=== PATIENT | female | born 1965 | race Caucasian/White ===

== ENCOUNTER 2019-11-10 08:01 | Outpatient (CLI) | payer OTHER, SELFPAY ==
--- NOTE | ~2019-11-10 | MM_ITS ---
EXAMINATION: MM screening [facility] BI w alexander HISTORY: Screening mammogram TECHNIQUE: Craniocaudal and mediolateral oblique 3-D tomosynthesis images were obtained and synthetic 2-D images were generated. CAD analysis was submitted and interpreted. COMPARISON: 06/22/2018, 05/15/2017 bilateral digital screening mammogram examinations BREAST PARENCHYMAL COMPOSITION: There are scattered areas of fibroglandular density. FINDINGS: There is no evidence of suspicious mass, calcification, or architectural distortion to sugg est malignancy in either breast. There has been no suspicious interval change. IMPRESSION: 1. No mammographic evidence of malignancy. 2. Recommend routine screening mammography in one year. BI-RADS Category 1: Negative Reviewed, dictated and finalized at location A.
== END 2019-11-10 08:02 | disposition home or self-care (01) ==
LOC: ANHIMG 08:05
PROVIDERS: PCP Physician Assistant; Visit Provider Obstetrics & Gynecology
DX: Z12.31 Encounter for screening mammogram for malignant neoplasm of breast (principal)
CPT/HCPCS: 77063; 77067

== ENCOUNTER 2021-02-20 15:44 | Outpatient (CLI) | payer OTHER, SELFPAY ==
--- NOTE | ~2021-02-20 | MM_ITS ---
EXAMINATION: MM screening [facility] BI w alexander HISTORY: Screening mammogram TECHNIQUE: Craniocaudal and mediolateral oblique 3-D tomosynthesis images were obtained and synthetic 2-D images were generated. CAD analysis was submitted and interpreted. COMPARISON: 11/10/2019, 06/22/2018, 05/15/2017 bilateral screening mammogram examinations BREAST PARENCHYMAL COMPOSITION: There are scattered areas of fibroglandular density. FINDINGS: There is no evidence of suspicious mass, calcification, or architectural distortion to sugg est malignancy in either breast. There has been no suspicious interval change. IMPRESSION: 1. No mammographic evidence of malignancy. 2. Recommend routine screening mammography in one year. BI-RADS Category 1: Negative Reviewed, dictated and finalized at location A. GNER/WRITER
== END 2021-02-20 15:45 | disposition home or self-care (01) ==
LOC: ANHIMG 15:47
PROVIDERS: PCP Physician Assistant; Visit Provider Obstetrics & Gynecology
DX: Z12.31 Encounter for screening mammogram for malignant neoplasm of breast (principal)
CPT/HCPCS: 77063; 77067

== ENCOUNTER → 2021-11-06 08:35 | Outpatient (CLI) | payer OTHER, SELFPAY ==
--- NOTE | ~2021-11-06 | XR_ITS ---
XR shoulder RT min 2V, XR humerus RT 11/06/2021 09:01 Indication: Right arm and shoulder pain Procedure: 4 views right shoulder and 2 views right humerus Comparison: No prior studies for comparison. Findings: No fracture, subluxation or dislocation. There is anatomic alignment of the right shoulder. No significant degenerative joint disease. No focal soft tissue abnormality. No foreign bodies. Impression: 1: No significant bone or joint abnormality. Reviewed, dictated and finalized at location B. Impression: 1: No significant bone or joint abnormality. Impression: 1: No significant bone or joint abnormality.
== END ==
PROVIDERS: PCP Physician Assistant; Visit Provider Physician Assistant
DX: M79.601 Pain in right arm (principal)
CPT/HCPCS: 73030; 73060

== ENCOUNTER 2022-03-21 08:33 | Outpatient (CLI) | payer OTHER, SELFPAY ==
--- NOTE | ~2022-03-21 | MM_ITS ---
EXAMINATION: MM screening [facility] BI w alexander HISTORY: Screening mammogram TECHNIQUE: Craniocaudal and mediolateral oblique 3-D tomosynthesis images were obtained and synthetic 2-D images were generated. CAD analysis was submitted and interpreted. COMPARISON: 02/20/2021, 11/10/2019, 06/22/2018 bilateral screening mammogram examinations BREAST PARENCHYMAL COMPOSITION: There are scattered areas of fibroglandular density. FINDINGS: There is no evidence of suspicious mass, calcification, or architectural distortion to sugg est malignancy in either breast. There has been no suspicious interval change. IMPRESSION: 1. No mammographic evidence of malignancy. 2. Recommend routine screening mammography in one year. BI-RADS Category 1: Negative Reviewed, dictated and finalized at location A. VE DIRECTORY ADMINISTRATOR
== END 2022-03-21 08:34 | disposition home or self-care (01) ==
LOC: ANHIMG 08:34
PROVIDERS: PCP Physician Assistant; Visit Provider Obstetrics & Gynecology
DX: Z12.31 Encounter for screening mammogram for malignant neoplasm of breast (principal)
CPT/HCPCS: 77063; 77067

== ENCOUNTER 2023-02-10 07:49 | Outpatient (CLI) | payer OTHER, SELFPAY | END 2023-02-10 07:50 | disposition home or self-care (01) | LOC: ANHAUDIO 07:50 | PROVIDERS: PCP Physician Assistant; Visit Provider Physician Assistant | DX: H91.90 Unspecified hearing loss, unspecified ear (principal) | CPT/HCPCS: 92552; 92556; 92567 ==

== ENCOUNTER 2023-08-18 16:07 | Outpatient (CLI) | payer OTHER, SELFPAY ==
--- NOTE | ~2023-08-18 | MM_ITS ---
EXAMINATION: MM screening [facility] w alexander HISTORY: Screening TECHNIQUE: Craniocaudal and mediolateral oblique 3-D tomosynthesis images were obtained and synthetic 2-D images were generated. CAD analysis was submitted and interpreted. COMPARISON: Comparison to multiple prior studies sequentially, with oldest reviewed study dated 05/15. BREAST PARENCHYMAL COMPOSITION: The breasts are almost entirely fatty. FINDINGS: There is no evidence of suspicious mass, calcification, or architectural distortion to sugg est malignancy in either breast. There has been no suspicious interval change. IMPRESSION: 1. No mammographic evidence of malignancy. 2. Recommend routine screening mammography in one year. BI-RADS Category 1: Negative Reviewed, dictated and finalized at location B.
== END 2023-08-18 16:08 | disposition home or self-care (01) ==
PROVIDERS: PCP Physician Assistant; Visit Provider Obstetrics & Gynecology
DX: Z12.31 Encounter for screening mammogram for malignant neoplasm of breast (principal)
CPT/HCPCS: 77063; 77067

== ENCOUNTER 2024-04-13 09:13 | Outpatient (CLI) | payer BC, SELFPAY ==
--- NOTE | ~2024-04-13 | US_ITS ---
EXAMINATION: US right upper quadrant DATE: 04/13/2024 10:05 INDICATION: Abnormal liver function tests. TECHNIQUE: Multiple grayscale and Doppler ultrasound images of the abdomen were obtained. COMPARISON: None FINDINGS: The visualized portions of the head and body of the pancreas are normal. The liver is jerry l without focal lesion. There is normal flow in main portal vein. The gallbladder is normal in size a nd contains gallstones. No gallbladder wall thickening or sonographic Aguilar sign. The common duct is normal and measures 3 mm. IMPRESSION: 1. Cholelithiasis. No evidence of acute cholecystitis. Reviewed, dictated and finalized at location B. E CUTTER
--- OUTSIDE RECORDS SUMMARY | 2024-04-14 22:20 | XMS_ITS | Data Portability ---
Author Organization [facility] Mar[place] Lares Address [address] [place] [id number] Care Team Providers Care Med Surg Nurse Name Role Phone MIQUEL CHOW Primary Care Provider Unavailab le Assessment Encounter Date Assessment Date Assessment LastModified by Organization Details LastModified Time 02/01/2024 02/01/2024 mammogram UTD Deonte 2023 pap smear soon feb.23. [facility] U[facility] colonoscopy 2016, 10 year was given. Not available 02/01/2024 12:30:35 Plan of Treatment Reminders Order Date Submit Date Provider Last Modified By Organization Details Last Modified Time Details Appointments None recorded . Lab TSH + free T4, serum 024 02/01/20 ROD Reed, 2022 [address], [address], [place], [address], 4 11:15:59 lipid panel, serum 024 02/01/20 ROD Reed, 2022 Jordan Ramirez, [address], [place], [address], 4 11:15:58 CMP, serum or plasma 024 02/01/20 ROD Reed, 2022 Jordan Ramirez, [address], [place], [address], 4 11:16:01 CBC w/ auto diff 024 02/01/20 ROD Reed, 2022 Jordan Ramirez, [address], [place], [address], 4 11:16:05 insulin, serum 024 02/01/20 ROD [facility], 2022 Jordan Ramirez, [address], [place], [address], 4 11:16:04 HbA1c (hemoglo bin A1c), blood 024 02/01/20 ELIZABETH [facility], [address], [address], [place], [address], 4 11:16:02 Referral None recorded . Procedures None recorded . Surgeries None recorded . Imaging None recorded . Medication Orders None recorded . Patient TargetsNo targets recorded. Patient Instructions Encounter Date Encounter Id Patient Instructions Last Modified By Organization Details Last Modified Time 02/01/2024 [id number] A healthy lifestyle: care instructions Not available 02/01/2024 12:31:40 Reason for Referral None Reported. Results Created Date Observation Date Name Description Value Unit Range Abnormal Flag Note LastModifiedBy Organization Detail LastModifiedTime 02/04/20 24 02/05/2024 LIPID PANEL W/ CHOL/ HDL RATIO cholesterol, total 161 mg/dL 100-19 9 Not Available [facility] ([facility]) [address] [facility], [place], [address], 02/05/2024 11:15:58 02/04/20 24 02/05/2024 LIPID PANEL W/ CHOL/ HDL RATIO triglyceride s 101 mg/dL 0-149 Not Available [facility] ([facility]) [address] [facility], [place], [address], 02/05/2024 11:15:58 02/04/20 24 02/05/2024 LIPID PANEL W/ CHOL/ HDL RATIO HDL cholesterol 58 mg/dL >39 Not Available [facility] ([facility]) [address] [facility], [place], [address], 02/05/2024 11:15:58 02/04/20 24 02/05/2024 LIPID PANEL W/ CHOL/ HDL RATIO VLDL cholesterol xavi 18 mg/dL 5-40 Not Available [facility] ([facility]) [address] [place], [address], 02/05/2024 11:15:58 02/04/20 24 02/05/2024 LIPID PANEL W/ CHOL/ HDL RATIO LDL chol calc ([facility]) 85 mg/dL 0-99 Not Available [facility] ([facility]) [address] [place], [address], 02/05/2024 11:15:58 02/04/20 24 02/05/2024 LIPID PANEL W/ CHOL/ HDL RATIO T. chol/HDL ratio 2.8 ratio 0.0-4. 4 T. Chol/ HDL Ratio Men Women 1/2 Avg.R isk 3.4 3.3 Avg.R isk 5.0 4.4 2X Avg.R isk 9.6 7.1 3X Avg.R isk 23.4 11.0 Not Available [facility] ([facility]) [address] [place], [address], 02/05/2024 11:15:58 02/04/20 24 02/05/2024 TSH+F REE T4 TSH 2.190 uIU/m L 0.450- 4.500 Not Available [facility] ([facility]) [address] [place], [address], 02/05/2024 11:15:59 02/04/20 24 02/05/2024 TSH+F REE T4 T4,free(dire ct) 1.13 NG/dL 0.82-1 .77 Not Available [facility] ([facility]) [address] [place], [address], 02/05/2024 11:15:59 02/04/20 24 02/05/2024 COMP. METAB OLIC PANEL (14) glucose 99 mg/dL 70-99 Not Available [facility] ([facility]) [address] [place], [address], 02/05/2024 11:16:01 02/04/20 24 02/05/2024 COMP. METAB OLIC PANEL (14) BUN 15 mg/dL 6-24 Not Available [facility] ([facility]) [address] [facility], [place], [address], 02/05/2024 11:16:01 02/04/20 24 02/05/2024 COMP. METAB OLIC PANEL (14) creatinine 0.65 mg/dL 0.57-1 .00 Not Available [facility] ([facility]) [address] [facility], [place], [address], 02/05/2024 11:16:01 02/04/20 24 02/05/2024 COMP. METAB OLIC PANEL (14) eGFR 101 mL/mi n/1.7 3 >59 Not Available [facility] ([facility]) [address] [facility], [place], [address], 02/05/2024 11:16:01 02/04/20 24 02/05/2024 COMP. METAB OLIC PANEL (14) BUN/creatini ne ratio 23 9-23 Not Available [facility] ([facility]) [address] [facility], [place], [address], 02/05/2024 11:16:01 02/04/20 24 02/05/2024 COMP. METAB OLIC PANEL (14) sodium 142 mmol/ L 134-14 4 Not Available [facility] ([facility]) [address] [facility], [place], [address], 02/05/2024 11:16:01 02/04/20 24 02/05/2024 COMP. METAB OLIC PANEL (14) potassium 4.2 mmol/ L 3.5-5. 2 Not Available [facility] ([facility]) [address] [place], [address], 02/05/2024 11:16:01 02/04/20 24 02/05/2024 COMP. METAB OLIC PANEL (14) chloride 105 mmol/ L 96-106 Not Available [facility] ([facility]) [address] [facility] [place], [address], 02/05/2024 11:16:01 02/04/20 24 02/05/2024 COMP. METAB OLIC PANEL (14) carbon dioxide, total 25 mmol/ L 20-29 Not Available [facility] ([facility]) [address] [facility] [place], [address], 02/05/2024 11:16:01 02/04/20 24 02/05/2024 COMP. METAB OLIC PANEL (14) calcium 8.7 mg/dL 8.7-10 .2 Not Available [facility] ([facility]) [address] [facility], [place], [address], 02/05/2024 11:16:01 02/04/20 24 02/05/2024 COMP. METAB OLIC PANEL (14) protein, total 6.3 g/dL 6.0-8. 5 Not Available [facility] ([facility]) [address] [facility] [place], [address], 02/05/2024 11:16:01 02/04/20 24 02/05/2024 COMP. METAB OLIC PANEL (14) albumin 4.0 g/dL 3.8-4. 9 Not Available [facility] ([facility]) [address] [facility] [place], [address], 02/05/2024 11:16:01 02/04/20 24 02/05/2024 COMP. METAB OLIC PANEL (14) globulin, total 2.3 g/dL 1.5-4. 5 Not Available [facility] ([facility]) [address] [facility] [place], [address], 02/05/2024 11:16:01 02/04/20 24 02/05/2024 COMP. METAB OLIC PANEL (14) bilirubin, total 0.3 mg/dL 0.0-1. 2 Not Available [facility] ([facility]) [address] [place], [address], 02/05/2024 11:16:01 02/04/20 24 02/05/2024 COMP. METAB OLIC PANEL (14) alkaline phosphatase 126 IU/L 44-121 above high normal Not Available [facility] ([facility]) [address] [place], [address], 02/05/2024 11:16:01 02/04/20 24 02/05/2024 COMP. METAB OLIC PANEL (14) AST (SGOT) 35 IU/L 0-40 Not Available [facility] ([facility]) [address] [place], [address], 02/05/2024 11:16:01 02/04/20 24 02/05/2024 COMP. METAB OLIC PANEL (14) ALT (SGPT) 47 IU/L 0-32 above high normal Not Available [facility] ([facility]) [address] [place], [address], 02/05/2024 11:16:01 02/04/20 24 02/05/2024 HEMOG LOBIN A1C hemoglobin A1C 5.7 % 4.8-5. 6 above high normal Predi abete s: 5.7 - 6.4 Diabe panchito: >6.4 Glyce celeste contr ol for adult s with diabe panchito: <7.0 Not Available [facility] ([facility]) [address] [place], [address], 02/05/2024 11:16:02 02/04/20 24 02/05/2024 INSUL IN insulin 18.1 uIU/m L 2.6-24 .9 Not Available [facility] ([facility]) [address] [place], [address], 02/05/2024 11:16:03 02/04/20 24 02/05/2024 CBC WITH DIFFE RENTI AL/PL ATELE T WBC 4.5 x10e3 /uL 3.4-10 .8 Not Available [facility] ([facility]) [address] [facility], [place], [address], 02/05/2024 11:16:05 02/04/20 24 02/05/2024 CBC WITH DIFFE RENTI AL/PL ATELE T RBC 4.55 x10e6 /uL 3.77-5 .28 Not Available [facility] ([facility]) [address] [facility], [place], [address], 02/05/2024 11:16:05 02/04/20 24 02/05/2024 CBC WITH DIFFE RENTI AL/PL ATELE T hemoglobin 14.0 g/dL 11.1-1 5.9 Not Available [facility] ([facility]) [address] [place], [address], 02/05/2024 11:16:05 02/04/20 24 02/05/2024 CBC WITH DIFFE RENTI AL/PL ATELE T hematocrit 41.5 % 34.0-4 6.6 Not Available [facility] ([facility]) [address] [place], [address], 02/05/2024 11:16:05 02/04/20 24 02/05/2024 CBC WITH DIFFE RENTI AL/PL ATELE T MCV 91 fL 79-97 Not Available [facility] ([facility]) [address] [place], [address], 02/05/2024 11:16:05 02/04/20 24 02/05/2024 CBC WITH DIFFE RENTI AL/PL ATELE T MCH 30.8 pg 26.6-3 3.0 Not Available [facility] ([facility]) [address] [place], [address], 02/05/2024 11:16:05 02/04/20 24 02/05/2024 CBC WITH DIFFE RENTI AL/PL ATELE T MCHC 33.7 g/dL 31.5-3 5.7 Not Available [facility] ([facility]) [address] [facility], [place], [address], 02/05/2024 11:16:05 02/04/20 24 02/05/2024 CBC WITH DIFFE RENTI AL/PL ATELE T RDW 12.1 % 11.7-1 5.4 Not Available [facility] ([facility]) [address] [facility], [place], [address], 02/05/2024 11:16:05 02/04/20 24 02/05/2024 CBC WITH DIFFE RENTI AL/PL ATELE T platelets 200 x10e3 /uL 150-45 0 Not Available [facility] ([facility]) [address] [facility], [place], [address], 02/05/2024 11:16:05 02/04/20 24 02/05/2024 CBC WITH DIFFE RENTI AL/PL ATELE T neutrophils 56 % notest ab. Not Available [facility] ([facility]) [address] [facility], [place], [address], 02/05/2024 11:16:05 02/04/20 24 02/05/2024 CBC WITH DIFFE RENTI AL/PL ATELE T lymphs 30 % notest ab. Not Available [facility] ([facility]) [address] [facility], [place], [address], 02/05/2024 11:16:05 02/04/20 24 02/05/2024 CBC WITH DIFFE RENTI AL/PL ATELE T monocytes 9 % notest ab. Not Available [facility] ([facility]) [address] [facility], [place], [address], 02/05/2024 11:16:05 02/04/20 24 02/05/2024 CBC WITH DIFFE RENTI AL/PL ATELE T eos 4 % notest ab. Not Available [facility] ([facility]) [address] [facility], [place], [address], 02/05/2024 11:16:05 02/04/20 24 02/05/2024 CBC WITH DIFFE RENTI AL/PL ATELE T basos 1 % notest ab. Not Available [facility] ([facility]) [address] [facility], [place], [address], 02/05/2024 11:16:05 02/04/20 24 02/05/2024 CBC WITH DIFFE RENTI AL/PL ATELE T neutrophils (absolute) 2.5 x10e3 /uL 1.4-7. 0 Not Available [facility] ([facility]) [address] [facility], [place], [address], 02/05/2024 11:16:05 02/04/20 24 02/05/2024 CBC WITH DIFFE RENTI AL/PL ATELE T lymphs (absolute) 1.4 x10e3 /uL 0.7-3. 1 Not Available [facility] ([facility]) [address] [facility], [place], [address], 02/05/2024 11:16:05 02/04/20 24 02/05/2024 CBC WITH DIFFE RENTI AL/PL ATELE T monocytes(ab solute) 0.4 x10e3 /uL 0.1-0. 9 Not Available [facility] ([facility]) [address] [facility], [place], [address], 02/05/2024 11:16:05 02/04/20 24 02/05/2024 CBC WITH DIFFE RENTI AL/PL ATELE T eos (absolute) 0.2 x10e3 /uL 0.0-0. 4 Not Available [facility] ([facility]) [address] [facility], [place], [address], 02/05/2024 11:16:05 02/04/20 24 02/05/2024 CBC WITH DIFFE RENTI AL/PL ATELE T baso (absolute) 0.1 x10e3 /uL 0.0-0. 2 Not Available [facility] ([facility]) [address] [facility], [place], [address], 02/05/2024 11:16:05 02/04/20 24 02/05/2024 CBC WITH DIFFE RENTI AL/PL ATELE T immature granulocytes 0 % notest ab. Not Available [facility] ([facility]) [address] [facility], [place], [address], 02/05/2024 11:16:05 02/04/20 24 02/05/2024 CBC WITH DIFFE RENTI AL/PL ATELE T immature grans (abs) 0.0 x10e3 /uL 0.0-0. 1 Not Available [facility] ([facility]) [address] [facility], [place], [address], 02/05/2024 11:16:05 04/13/19 25 04/13/2024 US, liver No observ ation record ed. [facility] [address], [place], [address], 04/14/2024 10:20:41 Result Notes None recorded. Problems Name Problem SNOMED Code Status Onset Date Resolution Date Notes Provider Name and Address Organization Details Recorded Time Body mass index 40+ - severely obese 844563009 Active 024 Sebastien Jaimes MA null, [place] - [facility] 4 12:08:11 Obesity 592417733 Active 024 NOLVIA Pleitez Attn: Accounting ,[address] [facility], [place], [address] , [facility] 4 10:28:16 Long-term drug therapy Active 024 NOLVIA Pleitez Attn: Accounting ,[address] [facility], [place], [address] , [facility] 4 10:28:30 Problem Notes None recorded. Procedures Surgical History Date Name Laterality Status Provider Name and Address Organization Details Recorded Time D & c after delivery completed Sebastien Jiames MA [facility] 02/01/2024 12:04:40 Imaging Results Imaging Date Name Status LastModified by Organiz ation Details LastModified Time 04/13/2024 US, liver completed [facility] [address], [place], [address], 04/14/2024 10:20:41 Procedure Notes None recorded. Medical Equipment None Reported. Allergies Allergen ID Allergen Name Allergen Category Reaction Reaction Severity Criticality Documentation Date Start Date Code Code System Note Provider Name and Address Organization Details Recorded Time [id number] 2824e latex environme nt,medica tion Not available Not available Not available 02/01/2024 93802 91 RxNorm redne ss Not Available Not Available Not Available Medications Name Sig Start Date Stop Date Status Note LastModified by Organization Details LastModified Time multivitamin active otc Not Available Not Available Not Available Vitals Date Recorded Body weight Provider Name an d Address Organization Details Last Updated DateTime 02/01/2024 239634.95 g Sebastien Jaimes MA [facility] 01/31 12:03:21 Date Recorded Body mass index (BMI) Body height Provider Name and Address Organization Details Last Updated DateTime 02/01/2024 43 kg/m2 160.02 cm Sebastien Jaimes MA [facility] 02/01/2024 12:04:29 Date Recorded Respiratory rate Provider Name a nd Address Organization Details Last Updated DateTime 02/01/2024 18 /min Sebastien Jaimes MA [facility] 02/01/2024 12:04:30 Date Recorded Oxygen saturation Oxygen saturation in Arterial blood by Pulse oximetry Provider Name and Address Organization Details Last Updated DateTime 02/01/2024 99 % 99 % Sebastien Jaimes MA [facility] 02/01/2024 12:06:33 Date Recorded Heart rate Provider Name an d Address Organization Details Last Updated DateTime 02/01/2024 86 /min Sebastien Jaimes MA [facility] 2023 12:06:34 Date Recorded Systolic blood pressure Diastolic blood pressure Provider Name and Address Organization Details Last Updated DateTime 02/01/2024 116 mm[Hg] 82 mm[Hg] Sebastien Jaimes MA [place] - [facility] 02/01/2024 12:07:55 Date Recorded Systolic blood pressure Diastolic blood pressure Provider Name and Address Organization Details Last Updated DateTime 02/01/2024 130 mm[Hg] 80 mm[Hg] NOLVIA Pleitez Attn: Accounting,[address] [facility], [place], [address], [place] - [facility] 02/01/2024 12:30:42 Social History Question Answer Notes LastModified by Organizat ion Details LastModified Time Tobacco Smoking Status Never Smoker Sebastien Jaimes MA null, [facility] 02/01/2024 12:06:02 Do You Have An Advance Directive? No Information not available 02/01/2024 What Is Your Level Of Alcohol Consumption? Occasional Information not available 02/01/2024 Are You Blind Or Do You Have Difficulty Seeing? No Contacts Information not available 02/01/2024 What Is Your Level Of Caffeine Consumption? Moderate Information not available 02/01/2024 In The 14 Days Before Symptom Onset, Have You Had Close Contact With A Laboratory-confir med COVID-19 While That Case Was Ill? No Information not available 02/01/2024 In The 14 Days Before Symptom Onset, Have You Had Close Contact With A Person Who Is Under Investigation For COVID-19 While That Person Was Ill? No Information not available 02/01/2024 Have You Been To An Area Known To Be High Risk For COVID-19? No Information not available 02/01/2024 Are You Currently Employed? Yes Information not available 02/01/2024 Are You Deaf Or Do You Have Serious Difficulty Hearing? No Information not available 02/01/2024 What Type Of Diet Are You Following? REGULAR Information not available 02/01/2024 Are There Any Guns Present In Your Home? No Information not available 02/01/2024 What Was The Date Of Your Most Recent Tobacco Screening? 02/01/2024 Information not available 02/01/2024 What Is Your Relationship Status? Information not available 02/01/2024 Do You Use Your Seat Belt Or Car Seat Routinely? Yes Information not available 02/01/2024 Do You Have Smoke And Carbon Monoxide Detectors In Your Home? Yes Information not available 02/01/2024 Do You Use Any Illicit Or Recreational Drugs? No Information not available 02/01/2024 Do You Use Sunscreen Routinely? Yes Information not available 02/01/2024 Has Tobacco Cessation Counseling Been Provided? No Information not available 02/01/2024 Do You Or Have You Ever Used Any Other Forms Of Tobacco Or Nicotine? No Information not available 02/01/2024 Sex: Female Functional Status Question Answer Note LastModified by Organization D etails LastModified Time Are you able to care for yourself? Yes Information n ot available 02/01/2024 Mental Status None recorded. Family History Relationship Description Onset Age of this Age Resolved Age Notes LastModified by Organization Details LastModified Time Father Dementia [email or web address] Not availabl e 02/01/2024 12:05:27 Mother Diabetes mellitus tcarterma Not available 2023 12:05:32 Mother Disorder of thyroid gland tcarterma Not available 2023 12:05:38 Mother Hypertensive disorder tcarterma Not available 2023 12:05:42 Medical History No medical history recorded. Gynecological HistoryNo gynecological history recorded. Obstetrics History GPAL:G 0 P 0 0 0 0 Immunizations Vaccine Type Date Status Note Provider Nam e and Address Organization Details Recorded Time Influenza, MDCK, quadrivalent, PF 01/22/2023 completed Sebastien Ja[place], [place] [facility] 02/01/2024 12:04:59 COVID-19, mRNA, LNP-S, PF, 100 mcg/0.5mL dose or 50 mcg/0.25mL dose 02/23/2021 noelle Ja[place], [place] [facility] 02/01/2024 12:04:59 COVID-19, mRNA, LNP-S, PF, 30 mcg/0.3 mL dose 06/04/2020 [place]elle Ja[place], [place] [facility] 02/01/2024 12:04:59 COVID-19, mRNA, LNP-S, PF, 30 mcg/0.3 mL dose 06/26/2020 completed VISHNU [place] [facility] 02/01/2024 12:04:59 COVID-19, mRNA, LNP-S, bivalent, PF, 30 mcg/0.3 mL dose 01/18/2022 completed VISHNU [place] [facility] 02/01/2024 12:04:59 COVID-19, mRNA, LNP-S, PF, 50 mcg/0.5 mL 01/22/2023 completed IVSHNU [place] [facility] 02/01/2024 12:04:59 COVID-19, mRNA, LNP-S, PF, 50 mcg/0.5 mL 01/31/2024 completed VISHNU [place] [facility] 02/01/2024 12:04:59 Influenza, split virus, quadrivalent, PF 12/22/2019 completed VISHNU [place] [facility] 02/01/2024 12:04:59 Influenza, split virus, quadrivalent, PF 12/24/2020 completed VISHNU [place] [facility] 02/01/2024 12:04:59 Influenza, split virus, quadrivalent, PF 01/18/2022 completed VISHNU [place] [facility] 02/01/2024 12:04:59 Past Encounters Encounter ID Performer Location Encounter Start Date Encounter Closed Date Diagnosis/Indication Diagnosis SNOMED-CT Code Diagnosis ICD10 Code Diagnosis Note [id number] NOLVIA Pleitez [facility] [address] [place] [id number] 02/01/2024 11:44:18 02/01/2024 15:02:09 Body mass index 40+ - severely obese 034274551 Z68.41 BMI is 43 we will order a fasting insulin level to assess for insulin resistance Obesity 247350339 E66.9 discussed healthy diet, exercise, controllin g carbohydra panchito and added sugars in the diet Adult heal th examination 081309683 Z00.00 wellness completed. Cholesterol screening 27 6244196 Z13.220 Fasting lipid panel ordered Diabetes m ellitus screening 013890284 Z13.1 Annual diabetes screening ordered Thyroid di sorder screening 659983987 Z13.29 Routine thyroid panel due Long-term drug therapy 957350759 Z79.891 Routine CBC and CMP ordered Health Concerns Section Related Observation LastModified by Organization Detai ls LastModified Time None Recorded Concern Status LastModified by Organization Details LastModified Time None Recorded Advance Directives Directive N: Payers Encounter Date Sequence Insurance Name Policy Number Policy Quintanilla Covered Member ID Quintanilla Member ID Guarantor Name 02/01/2024 1 [facility] [id number] Catherine Dorado [id number] Catherinecarlos Dorado Notes Date Note Type Note Provider Name and Address Organization Details Recorded Time 02/01/2024 text/html Patient is here to reestablish with provider at new office location have her annual wellness exam and routine labs ordered. She has no complaints. NOLVIA Pleitez Attn: Accounting,[address] [facility], [place], [address], [facility] 02/19/2024 10:28:54 OBGyn Episode No OBEpisode recorded.
--- OUTSIDE RECORDS SUMMARY | 2024-04-14 22:20 | XMS_ITS | Clinical Summary ---
Author Organization [facility] Address [address] [place] [address]. [place] [address] [place] [address] Care Team Providers Care Entry Level Sales Associate Name Role Phone Vonnie Pacheco Primary Care Provider Allergies No known active allergies Medications Multiple Vitamins-Mineral s (MULTIVITAMIN ADULT) Tab Take 1 tablet by mouth daily. Active calcium carbonate-vitami n D (CALCIUM 500+D) 500-200 MG-UNIT Tab tablet Take 1 tablet by mouth daily. Active naproxen 500 MG tablet Take 1 tablet (500 mg total) by mouth 2 (two) times daily as needed (Pain. Please take with meals.). 60 tablet 05/06/2019 Active Social History Tobacco Use Types Packs/Day Years Used Date Smoking Tobacco: Never Smokeless Tobacco: Never Comments Unknown Sex and Gender Information Value Date Recorded Sex Assigned at Not on file Legal Sex Female 8:32 PM TAXI DANCER Gender Identity Not on file Sexual Orientation Not on file Last Filed Vital Signs Vital Sign Reading Time Taken Comments Blood Pressure 106/86 05/06/2019 1:00 AM TAXI DANCER Pulse 74 05/06/2019 1:00 AM TAXI DANCER Temperature 36.8 ??C (98.2 ??F) 05/05/2019 8:40 PM CS T Respiratory Rate 26 05/06/2019 1:00 AM TAXI DANCER Oxygen Saturation 98% 05/06/2019 1:00 AM TAXI DANCER Inhaled Oxygen Concentration - - Weight 90.7 kg (200 lb) 05/05/2019 8:40 PM TAXI DANCER Height 160 cm (5' 3 ) 05/05/2019 8:40 PM TAXI DANCER Body Mass Index 35.43 05/05/2019 8:40 PM TAXI DANCER Plan of Treatment Health Maintenance Due Date Last Done Comments Cervical Cancer Screening Pa p Smear (Age 30 to 64) Every 3 Years 1964 Colorectal Cancer Screening Colonoscopy (10 Years) 1964 Annual Physical 10/09/1967 Hepatitis C 1982 DTaP, Tdap and Td Vaccines ( 1 - Tdap) 10/09/1983 Cervical Cancer Screening Pa p with HPV Testing (Age 30 to 64) Every 5 Years 1994 Cervical Cancer Screening wi th HPV 1994 Mammogram Screening 2004 Zoster Vaccines (1 of 2) 2014 COVID-19 Vaccine (2023-2 5 season) 2023 06/26/2020, 06/04/2020 Influenza Adult (#1) 2023 12/25/2018 Meningococcal Vaccine Aged Out No abigail gianluca eligible based on patient's age to complete this topic Pneumococcal Vaccine: Pediatrics (0 to 5 Years) and At-Risk Patients (6 to 64 Years) Aged Out No longer eligible b ased on patient's age to complete this topic RSV Immunizations Under 20 Months Aged Out No longer eligible b ased on patient's age to complete this topic Insurance [facility] Care Teams Entry Level Sales Associate Relationship Specialty Start Date End Date Vonnie Pacheco PA [address] [place] [address] PCP - General PHYSICIAN AUTO BENCH MECHANIC 05/05/19
== END 2024-04-13 09:14 | disposition home or self-care (01) ==
PROVIDERS: PCP Physician Assistant; Visit Provider Physician Assistant
DX: K80.20 Calculus of gallbladder without cholecystitis without obstruction (principal); R74.01 Elevation of levels of liver transaminase levels
CPT/HCPCS: 76705

== ENCOUNTER 2024-09-16 06:46 | Outpatient (CLI) | payer BC, SELFPAY ==
--- NOTE | ~2024-09-16 | MR_ITS ---
MRI of the brain Clinical History: Headache Technique: Axial and sagittal T1-weighted images were acquired. These were followed by axial T2-weigh sudheer, diffusion weighted, gradient, and FLAIR images. Following intravenous administration of 20 cc Mu ltiHance gadolinium, T1-weighted fat-sat imaging was performed in the axial and coronal planes. Findings: No abnormal signal seen in the brain parenchyma. No acute infarct, intracranial hemorrhage, or mass lesion. Ventricles and subarachnoid spaces are unremarkable. Orbits are unremarkable. Paranasal sinuses and m astoid air cells are clear. Major intracranial flow voids are intact. Sagittal midline structures are intact. No abnormal postcontrast enhancement identified. IMPRESSION: No significant abnormality seen. Reviewed, dictated and finalized at location .
== END 2024-09-16 06:47 | disposition home or self-care (01) ==
PROVIDERS: PCP Physician Assistant; Visit Provider Physician Assistant
DX: R51.9 Headache, unspecified (principal)
CPT/HCPCS: 70553; A9577

== ENCOUNTER 2025-02-28 14:32 | Outpatient (CLI) | payer BC, SELFPAY ==
--- NOTE | ~2025-02-28 | XR_ITS ---
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 Technique: 2 views obtained. Findings: The lungs are clear, no effusion. No pneumothorax. Heart is normal size. Mediastinal and hilar contours are within normal limits. Bony thorax no acute abnormality. Impression: No acute cardiopulmonary abnormality. Reviewed, dictated and finalized at location P. HER VISUALLY IMPAIRED Impression: No acute cardiopulmonary abnormality.
--- OUTSIDE RECORDS SUMMARY | 2025-02-28 16:47 | XMS_ITS | Clinical Summary ---
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 Gender Identity Not on file Sexual Orientation Not on file Last Filed Vital Signs Vital Sign Reading Time Taken Comments Blood Pressure 106/86 05/06/2019 1:00 AM INTERNATIONAL ACCOUNT MANAGER Pulse 74 05/06/2019 1:00 AM INTERNATIONAL ACCOUNT MANAGER Temperature 36.8 C (98.2 F) 05/05/2019 8:40 PM INTERNATIONAL ACCOUNT MANAGER Respiratory Rate 26 05/06/2019 1:00 AM INTERNATIONAL ACCOUNT MANAGER Oxygen Saturation 98% 05/06/2019 1:00 AM INTERNATIONAL ACCOUNT MANAGER Inhaled Oxygen Concentration - - Weight 90.7 kg (200 lb) 05/05/2019 8:40 PM INTERNATIONAL ACCOUNT MANAGER Height 160 cm (5' 3) 05/05/2019 8:40 PM INTERNATIONAL ACCOUNT MANAGER Body Mass Index 35.43 05/05/2019 8:40 PM INTERNATIONAL ACCOUNT MANAGER Plan of Treatment Health Maintenance Due Date [...] wi th HPV 1994 Mammogram Screening 2004 Pneumococcal Vaccine: 50+ Years (1 of 1 - PCV) 2014 Zoster Vaccines (1 of 2) 2014 COVID-19 Vaccine (3 - 2024-2 6 season) 2024 06/26/2020, 06/04/2020 Influenza Adult (#1) 2024 12/25/2018 RSV Immunization or 60+ Years (1 - 1-dose 75+ series) 10/09/2039 Hepatitis A Vaccines Aged Out No long er eligible based on patient's age to complete this topic Meningococcal B Vaccine Aged Out No l onger eligible based on patient's age to complete this topic Meningococcal Vaccine Aged Out No abigail gianluca eligible based on patient's age to complete this topic RSV Immunizations Under 20 Months Aged Out No longer eligible b ased on patient's age to complete this topic Insurance [facility] Care Teams Departure Clerk Relationship Specialty Start Date End Date Vonnie Pacheco PA PCP - General PHYSICIAN EDUCATIONAL RECRUITER 05/05/19
--- NOTE | 2025-03-01 15:02 | WPDPFTINT ---
PFT Procedure Performed PFT Procedure Performed Plethysmography (Lung Vol) Diffusing Cap (DLCO) Flow Vol Loop Spirometry w/o Bronchodil PFT Interpretation This is a pulmonary function test with spirometry, plethysmography and diffusing capacity. The test was performed and results interpreted in accordance with the 2019 and 2005 ATS/ERS Task Force guidelines respectively using the Global Lung Function Initiative-2012 reference equations. Patient demonstrated good effort and cooperation. Reproducibility criteria were met. The quality of the spirometry maneuver was Grade A. Findings: Spirometry: The contour the inspiratory and expiratory flow tracing are normal. The FVC is 2.85 L, 93% predicted. The FEV1 is 2.10 L, 87% predicted. The FEV1: FVC ratio 74%. Plethysmography: The total lung capacity is 5.05 L, 103% predicted. The functional residual capacity is 2.54 L, 92% predicted. The residual volume is 2.11 L, 109% predicted. Diffusing capacity: The diffusing capacity unadjusted for hemoglobin and carboxyhemoglobin is 14.7, 70% predicted. The diffusing capacity adjusted for alveolar volume is 3.58, 80% predicted. Impression: The spirometry is normal without evidence of an obstructive abnormality. The lung volumes are normal. The diffusing capacity is normal. There are no prior studies for comparison
== END 2025-02-28 14:33 | disposition home or self-care (01) ==
PROVIDERS: PCP Physician Assistant; Visit Provider Physician Assistant
DX: R05.3 Chronic cough (principal)
CPT/HCPCS: 71046; 94375; 94726; 94729